=== PATIENT | male | born 2000 | race American Indian/Alaskan Native ===

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

== ENCOUNTER 2020-02-24 09:12 | Emergency (ER) | payer OTHER ==
[2020-02-24 09:16] VITALS: BP 127/90
[2020-02-24] MEDS ORDERED: IBUPROFEN 800 MG TAB PO ONE (10:02)
--- NOTE | 2020-02-24 10:05 | XRay Report ---
RIGHT SHOULDER 3 VIEWS INDICATION / CLINICAL INFORMATION: Right shoulder injury. COMPARISON: None available. FINDINGS: No fracture, dislocation or other significant skeletal abnormality. Signer Name: Rashawn Kirby MD Signed: 02/24/2020 10:01 AM Workstation Name: [id number]
--- NOTE | 2020-02-24 10:36 | Emergency Department Report ---
ED Upper Extremity Inj HPI - General Chief Complaint: Shoulder Injury Stated Complaint: RT SHOULDER INJURY Time Seen by Provider: 02/24/20 09:53 Source: patient Mode of arrival: Ambulatory Limitations: No Limitations - History of Present Illness Initial Comments: This is a 19-year-old male nontoxic, well nourished in appearance, no acute signs of distress presents to the ED with c/o of right shoulder pain 2 days. Patient stated that he had a fall while playing soccer to right shoulder. Patient denies any other trauma. Patient denies any numbness, tingling, fever, chills, nausea, vomiting, chest pain, shortness of breath, headache, stiff neck. Patient denies any joint swelling or joint redness. Patient stated has some decreased range of motion due to pain. Patient denies any allergies or significant past medical history. MD Complaint: Injury to:: right, shoulder -: days(s) (2) Other Extremity Injury: Shoulder: Right Severity scale (0 -10): 8 Improves With: immobilization Worsens With: movement of extremity Context: fall Associated Symptoms: denies other symptoms. denies: weakness, numbness, neck pain, suspects foreign body, nausea/vomiting, heard/felt popping sensat - Related Data Previous Rx's Medication Instructions Recorded Last Taken Type Acetaminophen/Codeine [Tylenol #3] 1 tab PO Q6H PRN #20 tab 07/18/15 Unknown Rx Ibuprofen [Motrin] 600 mg PO Q8H PRN #40 tablet 07/18/15 Unknown Rx Prednisone [predniSONE ([place]) ER 40 mg PO QDAY #40 tablet.dr 12/11/17 Unknown Rx TAB] Prednisone [predniSONE 10 mg 10 mg PO .TAPER #1 tab.ds.pk 12/11/17 Unknown Rx (6-Day Pack, 21 Tabs)] diphenhydrAMINE [Benadryl CAP] 25 mg PO Q8HR PRN #20 capsule 12/11/17 Unknown Rx Ibuprofen [Motrin] 600 mg PO Q8H PRN #12 tablet 02/24/20 Unknown Rx Allergies Allergy/AdvReac Type Severity Reaction Status Date / Time No Known Allergies Allergy Verified 07/18/15 14:33 ED Review of Systems ROS: Stated complaint: RT SHOULDER INJURY Other details as noted in HPI Constitutional: denies: chills, fever Eyes: denies: eye pain, eye discharge, vision change ENT: denies: ear pain, throat pain Respiratory: denies: cough, shortness of breath, wheezing Cardiovascular: denies: chest pain, palpitations Endocrine: no symptoms reported Gastrointestinal: denies: abdominal pain, nausea, diarrhea Genitourinary: denies: urgency, dysuria Musculoskeletal: denies: back pain, joint swelling, arthralgia Skin: denies: rash, lesions Neurological: denies: headache, weakness, paresthesias Psychiatric: denies: anxiety, depression Hematological/Lymphatic: denies: easy bleeding, easy bruising ED Past Medical Hx - Past Medical History Previous Medical History?: No - Surgical History Past Surgical History?: No - Social History Smoking Status: Never Smoker Substance Use Type: None - Medications Home Medications: Home Medications Medication Instructions Recorded Confirmed Last Taken Type Acetaminophen/Codeine [Tylenol #3] 1 tab PO Q6H PRN #20 tab 07/18/15 Unknown Rx Ibuprofen [Motrin] 600 mg PO Q8H PRN #40 tablet 07/18/15 Unknown Rx Prednisone [predniSONE ([place]) ER 40 mg PO QDAY #40 tablet.dr 12/11/17 Unknown Rx TAB] Prednisone [predniSONE 10 mg 10 mg PO .TAPER #1 tab.ds.pk 12/11/17 Unknown Rx (6-Day Pack, 21 Tabs)] diphenhydrAMINE [Benadryl CAP] 25 mg PO Q8HR PRN #20 capsule 12/11/17 Unknown Rx Ibuprofen [Motrin] 600 mg PO Q8H PRN #12 tablet 02/24/20 Unknown Rx ED Physical Exam - General Limitations: No Limitations General appearance: alert, in no apparent distress - Head Head exam: Present: atraumatic, normocephalic - Eye Eye exam: Present: normal appearance - Neck Neck exam: Present: normal inspection, full ROM - Respiratory Respiratory exam: Absent: respiratory distress - Cardiovascular Cardiovascular Exam: Present: regular rate - Extremities Exam Extremities exam: Present: normal inspection, full ROM, tenderness, normal capillary refill. Absent: joint swelling - Expanded Upper Extremity Exam Right General: Present: normal inspection Shoulder Exam: Present: normal inspection, full ROM, tenderness. Absent: swelling, abrasion, laceration, ecchymosis, deformity, crepidus, dislocation, erythema, tenderness over AC joint Upper Arm exam: Present: normal inspection, full ROM. Absent: tenderness, swelling Elbow exam: Present: normal inspection, full ROM. Absent: tenderness, swelling Forearm Wrist exam: Present: normal inspection, full ROM. Absent: tenderness, swelling Hand Wrist exam: Present: normal inspection, full ROM. Absent: tenderness, swelling Vascular: Present: normal capillary refill. Absent: vascular compromise (Neurovascular within normal limits) - Back Exam Back exam: Present: normal inspection, full ROM. Absent: tenderness, CVA tenderness (R), CVA tenderness (L), muscle spasm, paraspinal tenderness, vertebral tenderness, rash noted - Neurological Exam Neurological exam: Present: alert, oriented X3, normal gait - Psychiatric Psychiatric exam: Present: normal affect, normal mood - Skin Skin exam: Present: warm, dry, intact, normal color. Absent: rash ED Course Vital Signs 02/24/20 02/24/20 09:14 10:21 Temperature 98.6 F Pulse Rate 75 Respiratory 16 16 Rate Blood Pressure 127/90 O2 Sat by Pulse 99 Oximetry - Reevaluation(s) Reevaluation #1: 02/24/20 10:38 Patient is speaking in full sentences with no signs of distress noted. ED Medical Decision Making - Radiology Data Referring Physician: PANCHO MENA Patient Name: SPIKE EASTMAN Date of : 2000 Sex: Male Report Date: 2020-02-24 Report Status: Finalized [facility] [address] [place] [address] XRay Report Signed Patient: SPIKE EASTMAN MR#: [id number] 13 : 2000 Acct:[id number] Age/Sex: 19 / M ADM Date: 02/24/20 Loc: ED Attending Dr: Ordering Physician: PANCHO MENA MD Date of Service: 02/24/20 Procedure(s): XR shoulder 2+V RT Accession Number(s): [id number] cc: PANCHO MENA MD Fluoro Time In Minutes: RIGHT SHOULDER 3 VIEWS INDICATION / CLINICAL INFORMATION: Right shoulder injury. COMPARISON: None available. FINDINGS: No fracture, dislocation or other significant skeletal abnormality. Signer Name: Rashawn Kirby MD Signed: 02/24/2020 10:01 AM Workstation Name: [id number] Transcribed By: TM Dictated By: Rashawn Kirby MD Electronically Authenticated By: Rashawn Kirby MD Signed Date/Time: 02/24/20 1001 DD/ 1000 TD/TT: - Medical Decision Making This is a 19-year-old female that presents with right shoulder strain. Patient is stable and was examined by me. I referred patient to an orthopedic doctor for further evaluation for possible MRI. X-ray has been obtained and dictated by the radiologist. Patient is notified of the x-ray report with noted by the patient. Patient does have normal ROM with mild tenderness and no joint swelling. No ecchymosis. no joint redness or swelling. Not warm to touch. No signs of cellulites present. Patient received a shoulder sling. Patient was instructed to RICE therapy. Patient received Motrin for pain. Patient is discharged with Motrin. At time of discharge, the patient does not seem toxic or ill in appearance. No acute signs of distress noted. Patient agrees to discharge treatment plan of care. No further questions noted by the patient. Critical care attestation.: If time is entered above; I have spent that time in minutes in the direct care of this critically ill patient, excluding procedure time. ED Disposition Clinical Impression: Right shoulder strain Qualifiers: Encounter type: initial encounter Qualified Code(s): S46.911A - Strain of u nspecified muscle, fascia and tendon at shoulder and upper arm level, right arm, initial encounter Disposition: DC- TO HOME OR SELFCARE Is pt being admited?: No Does the pt Need Aspirin: No Condition: Stable Instructions: RICE Therapy (ED) Additional Instructions: Follow-up with a orthopedic doctor in 3-5 days or if symptoms worsen and continue return to emergency room as soon as possible. No physical activity that extremity until cleared by orthopedic doctor Prescriptions: Ibuprofen [Motrin] 600 mg PO Q8H PRN #12 tablet PRN Reason: Pain Referrals: INÉS GUERRERO MD [Primary Care Provider] - 3-5 Days FABBY BEDOYA MD [Staff Physician] - 3-5 Days Forms: Work/School Release Form(ED)
== END 2020-02-24 11:00 | disposition home or self-care (01) ==
LOC: ED 09:12
DX: S46.911A Strain of unspecified muscle, fascia and tendon at shoulder and upper arm level, right arm, initial encounter (principal); Z79.1 Long term (current) use of non-steroidal anti-inflammatories (NSAID); Z79.899 Other long term (current) drug therapy; W19.XXXA Unspecified fall, initial encounter; Y93.66 Activity, soccer; Y92.89 Other specified places as the place of occurrence of the external cause; Y99.8 Other external cause status